=== PATIENT | female | born 1985 | race Hispanic/Latino ===

== ENCOUNTER 2018-03-18 10:44 | Day surgery (SDC) | payer OTHER ==
[~2018-03-18 10:44] MED LIST: DILAUDID IV PRN; FLAGYL 500 MG/100 ML 500 MG/100 ML BAG IV SCH; LACTATED RINGERS 1,000 ML IV SCH; PERCOCET 5/325 PO PRN; TORADOL IV PRN; VERSED IV NR
[2018-03-18] MEDS ORDERED: ZOFRAN IV PRN (11:29)
[2018-03-18] MEDS ORDERED: DEMEROL IV PRN (11:29)
--- NOTE | 2018-03-18 11:29 | Anesthesia Day of Surgery ---
Anesthesia Day of Surgery - Day of Surgery Patient Examined: Yes Patient H&P Reviewed: Yes Patient is NPO: Yes
--- NOTE | 2018-03-18 11:29 | Anesthesia Consultation ---
Anesthesia Consult and Med Hx Date of service: 03/18/18 - Airway Anesthetic Teeth Evaluation: Good ROM Head & Neck: Adequate Mental/Hyoid Distance: Adequate Mallampati Class: Class II Intubation Access Assessment: Probably Good - Pulmonary Exam CTA: Yes - Cardiac Exam Cardiac Exam: RRR - Pre-Operative Health Status ASA Pre-Surgery Classification: ASA1 Proposed Anesthetic Plan: General - Pulmonary Hx Smoking: No Hx Asthma: No Hx Sleep Apnea: No (THELMA PRE SCREEN NEGATIVE) - Cardiovascular System Hx Hypertension: No Hx Heart Murmur: Yes ( CHILD ONLY) - Central Nervous System Hx Seizures: No CVA: No Hx Back Pain: Yes Hx Psychiatric Problems: Yes (Depression- on Zoloft) - Gastrointestinal Hx Gastroesophageal Reflux Disease: No - Endocrine Hx Renal Disease: No (Recurrent renal stones) Hx Non-Insulin Dependent Diabetes: No - Other Systems Hx Alcohol Use: No Hx Substance Use: No Hx Cancer: No Hx Obesity: No
[2018-03-18] MEDS ORDERED: NACL BACTERIOSTATIC INFILTRATI ONE (11:49)
[2018-03-18] MEDS ORDERED: VERSED IV NR (12:00)
[2018-03-18] MEDS ORDERED: TORADOL IV ONE (12:00)
[2018-03-18] MEDS ORDERED: DILAUDID ONE (12:58)
[2018-03-18] MEDS ORDERED: DIPRIVAN 10 MG/ML IV ONE (12:58)
[2018-03-18] MEDS ORDERED: XYLOCAINE MPF 2% ONE (12:58)
[2018-03-18] MEDS ORDERED: ZOFRAN ONE (13:40)
[2018-03-18] MEDS ORDERED: WATER FOR IRRIG STERILE IR ONE (13:45)
--- NOTE | 2018-03-18 14:10 | Short Stay Summary ---
Short Stay Documentation Date of service: 03/18/18 - History H&P: obtained from office - Allergies and Medications Current Medications: Allergies Penicillins Allergy (Verified 12/08/15 08:56) Swelling Home Medications Medication Instructions Recorded Confirmed Last Taken Type HYDROcodone/ACETAMINOPHEN 1 tab PO PRN PRN 12/08/15 03/16/18 12/09/15 History [HYDROcodone-Acetaminophen 5-300 mg] Sertraline [Zoloft] 50 mg PO QDAY 12/08/15 03/18/18 03/17/18 History Tramadol HCl [traMADol] 1 tab PO PRN PRN 12/08/15 03/16/18 12/10/15 History Ciprofloxacin HCl [Cipro] 500 mg PO BID 03/16/18 03/18/18 03/17/18 History Oxycodone HCl/Acetaminophen 1 each PO Q6HR PRN 03/18/18 03/18/18 03/18/18 06:00 History [Percocet 10/325 mg] Active Medications Hydromorphone HCl (Dilaudid) 0.25 mg IV Q10MIN PRN PRN Reason: Pain, Moderate (4-6) Stop: 03/18/18 21:00 Hydromorphone HCl (Dilaudid) 0.5 mg IV Q10MIN PRN PRN Reason: Pain , Severe (7-10) Stop: 03/19/18 11:28 Metronidazole (Flagyl 500 Mg/100 Ml) 500 mg in 100 mls @ 100 mls/hr IV PREOP CLEMENT Stop: 03/18/18 16:00 Lactated Ringer's (Lactated Ringers) 1,000 mls @ 100 mls/hr IV DIRECT CLEMENT Last Admin: 03/18/18 12:15 Dose: 100 mls/hr Ketorolac Tromethamine (Toradol) 30 mg IV ONCE PRN PRN Reason: Pain, Moderate (4-6) Stop: 03/18/18 21:00 Meperidine HCl (Demerol) 25 mg IV ONCE PRN PRN Reason: Shivering Midazolam HCl (Versed) 2 mg IV PREOP NR Stop: 03/18/18 23:59 Last Admin: 03/18/18 12:30 Dose: 2 mg Midazolam HCl (Versed) 2 mg IV PREOP NR Stop: 03/18/18 23:59 Ondansetron HCl (Zofran) 4 mg IV ONCE PRN PRN Reason: Nausea And Vomiting Oxycodone/Acetaminophen (Percocet 5/325) 1 tab PO ONCE PRN PRN Reason: Pain, Moderate (4-6) Stop: 03/18/18 21:00 - Brief post op/procedure progress note Date of procedure: 03/18/18 Pre-op diagnosis: rt flank pain, hematuria Post-op diagnosis: other (distal ureteral stricture) Procedure: cysto, rpg, rt ureteroscopy stent (6x 24cm) with external string Anesthesia: GETA Surgeon: ALISSA NGUYEN Estimated blood loss: minimal Pathology: none Condition: stable - Hospital course Hospital course: cipro,nornirali, post op info on chart - Disposition Condition at discharge: Stable Disposition: DC-01 TO HOME OR SELFCARE Short Stay Discharge Plan Follow up with: PRIMARY CARE, [Primary Care Provider] - 7 Days
[2018-03-18] MEDS: DILAUDID IV PRN ×2 (14:41→14:47)
--- NOTE | 2018-03-18 14:55 | Operative Report ---
PREOPERATIVE DIAGNOSES: Right flank pain, hematuria, history of ureteral stricture, right ureteral stricture. POSTOPERATIVE DIAGNOSES: Right flank pain, hematuria, history of ureteral stricture, right ureteral stricture. PROCEDURE: Cystoscopy, bilateral retrograde pyelograms, right flexible ureteroscopy with passive dilatation of a distal ureteral stricture. PROCEDURE: Right double-J stent (6 [place] 24 cm with an external string). SURGEON: Sree Castro MD ANESTHESIA: General. ESTIMATED BLOOD LOSS: Minimal. FLUIDS: Crystalloid. COMPLICATIONS: No complications. INDICATIONS: This patient is a 33-year-old female known to our service with history of a distal ureteral stricture, right ureteral stricture in the past. She was last seen approximately 2 years ago, has been doing well until recently right flank pain with a fever to [address] of abdomen and pelvis unremarkable; however, due to her persistent symptoms, she presents now for endoscopic evaluation. DESCRIPTION OF PROCEDURE: The patient was taken to the operative suite, placed in a supine position. After adequate general anesthesia, placed in dorsal lithotomy position, prepped and draped in a sterile fashion. Pancystourethroscopy was performed with a 22 [place] Helen[place] Storz cystoscope. No bladder pathology. Both ureteral orifices in normal position. No tumors or stones. Bilateral retrograde pyelograms were obtained with an 8 [place] David catheter and 8 mL of contrast. No filling defects or obstruction on the left. Right side, there was some narrowing of the distal ureter as well as the mid ureter. Two 0.035 Glidewires were placed. Flexible ureteroscopy was performed, this allowed dilation of the ureter with the scope, it was advanced up to the renal pelvis. No obvious stone could be appreciated just the stenosis. A 6-St Helenian 24 cm double-J stent was left indwelling. The patient was extubated and taken to recovery room. She will go home on [employer] and [employer] and follow up in the office. JOB# [id number] KIMBERLY/DALLIN
--- NOTE | 2018-03-18 16:07 | Post Anesthesia Evaluation ---
- Post Anesthesia Evaluation Patient Participated: Yes Airway Patent: Yes Stable Respiratory Function: Yes Nausea/Vomiting: No Temp > 96.8F: Yes Pain Manageable: Yes Adequeate Hydration: Yes Anesthesia Complications: No Block Receding Appropriately: Not Applicable Patient on Ventilator: No
[2018-03-18 17:39] VITALS: BP 114/80
--- NOTE | 2018-03-20 07:16 | Fluoroscopy Report ---
Retrograde urography: History: Right ureteral l stricture. Findings: The director of home economics film reveals no calculus in the kidney parenchyma and the ureter. The retrograde examination reveals adequate filling and emptying of the collecting system bilaterally. No filling defects. The right ureteral stent is stable and in normal position with proximal end in kidney collecting system and distal end in the bladder. Impression: Stable right ureteral stent. No hydronephrosis.
== END 2018-03-18 15:50 | disposition home or self-care (01) ==
LOC: OR 10:44
PROVIDERS: ATTEND Urology
DX: N13.5 Crossing vessel and stricture of ureter without hydronephrosis (principal); R31.9 Hematuria, unspecified; Z88.0 Allergy status to penicillin
CPT/HCPCS: 52332; 52344; 74420; 81025; A4217; C1758; C1769; C2617; J1170; J1885; J2250; J2405; J2704; J7120; Q9967